=== PATIENT | male | born 2000 | race Caucasian/White ===

== ENCOUNTER → 2023-12-14 10:54 | Outpatient (REF) | payer OTHER, SELFPAY | LOC: RAD 10:54 | PROVIDERS: ATTENDING PHYSICIAN Nurse Practitioner Family | DX: R10.13 Epigastric pain (principal); R10.31 Right lower quadrant pain | CPT/HCPCS: 74177; Q9967 ==

== ENCOUNTER 2024-03-01 06:15 | Day surgery (SDC) | payer OTHER, SELFPAY | END 2024-03-01 11:26 | disposition home or self-care (01) | LOC: GI 06:15 | PROVIDERS: ATTENDING PHYSICIAN Internal Medicine | DX: R93.3 Abnormal findings on diagnostic imaging of other parts of digestive tract (principal) | CPT/HCPCS: 45380; 88305 ==

== ENCOUNTER 2024-05-09 18:59 | Outpatient (RCR) | payer OTHER, SELFPAY | END 2024-05-09 23:59 | disposition home or self-care (01) | LOC: RPT 18:59 | PROVIDERS: ATTENDING PHYSICIAN Internal Medicine; FAMILY PHYSICIAN Family Medicine | DX: M62.89 Other specified disorders of muscle (principal); R10.2 Pelvic and perineal pain; R15.2 Fecal urgency; Z73.6 Limitation of activities due to disability | CPT/HCPCS: 97112; 97140; 97163; 97530 ==

== ENCOUNTER 2024-06-06 10:49 | Outpatient (RCR) | payer OTHER, SELFPAY | END 2024-06-06 23:59 | disposition home or self-care (01) | LOC: RPT 10:49 | PROVIDERS: ATTENDING PHYSICIAN Internal Medicine; FAMILY PHYSICIAN Family Medicine | DX: M62.89 Other specified disorders of muscle (principal); R10.2 Pelvic and perineal pain; R15.2 Fecal urgency; Z73.6 Limitation of activities due to disability | CPT/HCPCS: 97112; 97140; 97530 ==

== ENCOUNTER 2024-07-09 11:57 | Outpatient (RCR) | payer OTHER, SELFPAY | END 2024-07-09 23:59 | disposition home or self-care (01) | LOC: RPT 11:57 | PROVIDERS: ATTENDING PHYSICIAN Internal Medicine; FAMILY PHYSICIAN Family Medicine | DX: R10.2 Pelvic and perineal pain (principal); R15.2 Fecal urgency; M62.89 Other specified disorders of muscle; Z73.6 Limitation of activities due to disability | CPT/HCPCS: 97014; 97110; 97112; 97140; 97530 ==

== ENCOUNTER 2024-08-09 09:53 | Outpatient (RCR) | payer OTHER, SELFPAY | END 2024-08-09 23:59 | disposition home or self-care (01) | LOC: RPT 09:53 | PROVIDERS: ATTENDING PHYSICIAN Internal Medicine; FAMILY PHYSICIAN Family Medicine | DX: M62.89 Other specified disorders of muscle (principal); R10.2 Pelvic and perineal pain; R15.2 Fecal urgency; Z73.6 Limitation of activities due to disability | CPT/HCPCS: 97014; 97110; 97112; 97140; 97530 ==

== ENCOUNTER 2024-08-28 08:58 | Outpatient (RCR) | payer OTHER, SELFPAY | END 2024-08-28 23:59 | disposition home or self-care (01) | LOC: RPT 08:58 | PROVIDERS: ATTENDING PHYSICIAN Internal Medicine; FAMILY PHYSICIAN Family Medicine | DX: M62.89 Other specified disorders of muscle (principal); R10.2 Pelvic and perineal pain; R15.2 Fecal urgency; Z73.6 Limitation of activities due to disability | CPT/HCPCS: 97140; 97530 ==

== ENCOUNTER 2024-10-09 10:04 | Outpatient (RCR) | payer OTHER, SELFPAY | END 2024-10-09 23:59 | disposition home or self-care (01) | LOC: RPT 10:04 | PROVIDERS: ATTENDING PHYSICIAN Internal Medicine; FAMILY PHYSICIAN Family Medicine | DX: M62.89 Other specified disorders of muscle (principal); R10.2 Pelvic and perineal pain; R15.2 Fecal urgency; Z73.6 Limitation of activities due to disability | CPT/HCPCS: 97110; 97112; 97140; 97530 ==

== ENCOUNTER 2024-10-23 19:58 | Emergency (ER) | payer OTHER, SELFPAY ==
[2024-10-23 20:02] VITALS: BP 126/82
[2024-10-23 20:23] LABS: Urine Character Clear (Clear)
[2024-10-23 20:24] LABS: Hematocrit 45.3 % (39.0-52.0); Hemoglobin 15.5 g/dL (13.0-18.0); Mean Corp Hgb Conc. 34.2 g/dL (33.0-37.0); Mean Corpuscular Volume 84.5 fL (80.0-94.0); Nucleated Red Blood Cells % 0 % (-); Platelet Count 238 10^3/uL (130-400); Red Cell Dist. Width 12.3 % (11.5-14.5)
[2024-10-23] MEDS: TYLENOL 650 MG PO (20:31)
[2024-10-23 20:42] LABS: ALT (SGPT) 32 U/L (0-50); AST (SGOT) 30 U/L (17-59); Albumin 4.8 g/dl (3.5-5.0); Alkaline Phosphatase 67 U/L (38-126); Blood Urea Nitrogen 22 mg/dl (9-20); Calcium 9.3 mg/dl (8.4-10.2); Carbon Dioxide 25 mmol/L (22-30); Chloride 103 mmol/L (98-107); Glucose 115 mg/dl (70-99); Lipase 86 U/L (23-300); Potassium 4.3 mmol/L (3.5-5.1); Sodium 137 mmol/L (135-145); Total Protein 7.6 g/dl (6.3-8.2); eGFR > 60.00
--- NOTE | 2024-10-23 23:06 | ED.GENMED ---
History of Present Illness
General
Chief Complaint: Abdominal Pain
Source: patient
Exam Limitations: none
Time Seen by Provider: 10/23/24 23:02
Nursing documentation reviewed up to this point in time: agreed with
History of Present Illness
History of Present Illness:
Note:
CHIEF COMPLAINT(S)
Abdominal discomfort and constipation.
HISTORY OF PRESENT ILLNESS
The patient is a 24-year-old male presenting with abdominal discomfort attributed to constipation, primarily localized to the right side. The patient reports experiencing this issue for a day and a half. During this period, he has not taken any
medications for pain relief. The problem has occurred previously, leading the patient to increase his intake of fluids and dietary fibers, such as fruits and vegetables, though he is surprised that the issue has recurred. Blood tests revealed a
slightly elevated white blood cell count of 12,000/mm�, which was deemed not significant. Urinalysis results were normal. Despite efforts to resolve the constipation, including physical activity, the condition persists.
PAST MEDICAL AND SURIGICAL HISTORY
No hospitalizations or past surgical history mentioned in the conversation.
SOCIAL HISTORY
The patient is physically active and has implemented changes to his fluid and fiber intake in response to previous episodes of constipation.
REVIEW OF SYSTEMS
- Gastrointestinal: Abdominal discomfort, constipation.
- General: Reports past episode of similar symptoms.
PHYSICAL EXAM
General: No acute distress.
Respiratory: Lungs clear, no respiratory distress noted.
Cardiovascular: S1 and S2 are normal; no S3 or murmurs detected.
Abdomen: Soft, non-tender, non-distended, no costovertebral angle tenderness.
Extremities: No edema, normal pulses in all extremities.
Neurological: Alert and oriented to person, place, and time; able to ambulate without difficulty.
PROBLEM LIST
Acute: Constipation, Abdominal discomfort.
PLAN
- Encourage the use of an rbxt-nis-eqyuxbf stool softener (MiraLAX) daily for one week to help alleviate constipation.
- Discuss dietary modifications, emphasizing adequate fluid intake and increased fiber consumption through fruits and vegetables.
- Reassurance provided regarding the absence of more serious underlying conditions based on laboratory and clinical findings.
DIFFERENTIAL DIAGNOSIS
The Differential Diagnosis includes, in no particular order and is not limited to:
1. Functional Constipation
2. Irritable Bowel Syndrome (IBS)
3. Dietary Fiber Insufficiency
4. Dehydration
5. Medication-Induced Constipation
6. Slow Transit Constipation
7. Hypothyroidism
8. Metabolic Imbalances
9. Intestinal Obstruction
10. Inflammatory Bowel Disease (IBD)
CARE-UPDATE
10/23/24 - 23:28
The patient is experiencing constipation. Discharge plans are being prepared. BUN levels are mildly elevated, and the patient is advised to increase fluid intake.
Disposition:
SUMMARY OF ENCOUNTER
The patient, a 24-year-old male, presented to the emergency department with abdominal discomfort primarily localized to the right side and attributed to constipation. The patient reported experiencing these symptoms for approximately a day and a
half. He has been increasing his fluid intake and dietary fiber consumption but has not taken any medications for pain relief. Laboratory tests revealed a slightly elevated white blood cell count but were deemed not significant. Urinalysis returned
normal results. Despite increased activity and dietary changes, the symptoms persisted, leading to this visit.
PLAN
- Recommend the use of an zyki-vqw-wsphfle stool softener, such as polyethylene glycol (Miralax), daily for one week to alleviate constipation.
- Emphasize dietary modifications with adequate fluid intake and increased consumption of fruits and vegetables.
- Reassurance provided regarding the absence of serious underlying conditions based on clinical and laboratory findings.
INDEPENDENT REVIEW OF LABS AND INTERPRETATION OF TESTS
My independent review of the complete blood count (CBC) indicates a slightly elevated white blood cell count of 12,000/mm�. My independent review of urinalysis results shows normal findings.
PATIENT EDUCATION AND COUNSELING
The patient was educated on the importance of maintaining adequate hydration and dietary fiber intake to prevent future episodes of constipation. Discussed the use of polyethylene glycol as a stool softener and encouraged him to seek further medical
evaluation if symptoms persist or worsen.
MEDICATION RECONCILIATION
Prescription medication was not administered during the visit. An sbas-bez-svkvqzi recommendation was made for polyethylene glycol (Miralax) as a stool softener.
MEDICAL DECISION MAKING
-Chronic conditions affecting care: No chronic conditions explicitly affecting this acute presentation were discussed.
-Complexity of Data Reviewed:
1. Differential Diagnosis:
- Functional Constipation
- Irritable Bowel Syndrome (IBS)
- Dietary Fiber Insufficiency
- Dehydration
- Medication-Induced Constipation
- Slow Transit Constipation
- Hypothyroidism
- Metabolic Imbalances
- Intestinal Obstruction
- Inflammatory Bowel Disease (IBD)
- Data:
- Category 1:
- Independent review of lab tests: CBC and urinalysis.
- Category 3:
- No external management discussion was noted.
- Risk:
Consideration of Admission/Observation: Escalation of care including admission/observation was considered given the complexity and risk of the patients presenting complaint and examination findings. Ultimately, outpatient management with close
follow-up was deemed appropriate as the work-up is reassuring, the patients symptoms are under control, and reliable follow-up is assured.
DIAGNOSIS
- Constipation, unspecified (ICD-10-CM: K59.00)
- Abdominal discomfort (ICD-10-CM: R10.9)
Phy Exam
Physical Exam
Physical Exam:
.
Course
Orders/Labs/Results
Orders:
Orders
10/23/24 20:11
Complete Blood Count/With Diff Urgent
Comprehensive Metabolic Panel Urgent
Lipase Urgent
Urinalysis Urgent
Date Specimen was Collected: 10/23/24
Time Specimen was Collected: 20:06
10/23/24 20:28
Acetaminophen [Tylenol] 650 mg .ROUTE .STK-MED ONE
10/23/24 20:31
Acetaminophen [Tylenol] 650 mg PO NOW STA
10/23/24 21:08
CT Abd/pelvis W Iv Cont Urgent
Comment:
Reason For Exam: RLQ pain
Abnormal Lab Results
10/23/24
20:11
WBC 12.6 H 10^3/uL
(4.8-10.8)
Absolute Neuts (auto) 8.0 H 10^3/uL
(1.4-6.5)
Absolute Monos (auto) 1.3 H 10^3/uL
(0.1-0.6)
Monocytes % 10.2 H %
(1.7-9.3)
BUN 22 H mg/dl
(9-20)
Glucose 115 H mg/dl
(70-99)
10/23/24 20:11
10/23/24 20:11
Vital Signs
Initial and Last Documented VS:
Initial Vital Signs
Temp Pulse Resp BP Pulse Ox
98.5 F 106 22 126/82 98
10/23/24 20:02 10/23/24 20:02 10/23/24 20:02 10/23/24 20:02 10/23/24 20:02
Last Documented Vital Signs
Temp Pulse Resp BP Pulse Ox
98.5 F 106 22 126/82 98
10/23/24 20:02 10/23/24 20:02 10/23/24 20:02 10/23/24 20:02 10/23/24 20:02
*Pulse Oximetry
SaO2: 98
Oxygen Mode of Delivery: Room air
Patient hypoxic: no
*Critical Care Note
Total Time (30-74mins, 75-104mins- exclusive of procedures): Not Applicable
ED Attending Note
-
Portions of this chart may have been created with voice recognition software.� Occasional wrong word or��sound alike� substitutions may have occurred due to the inherent limitations of voice recognition software.
Discharge Plan
Departure
Patient Disposition: Home (Routine Discharge)
Date of Disposition: 10/23/24
Time of Disposition: 23:21
Patient with high blood pressure during this ER visit?: Yes
Condition: Good
Discharge Problem:
Constipation
Instructions: Constipation, Adult (DC), Abdominal Pain, BLOOD PRESSURE
Referrals:
Abraham Jo MD [Active, Gastroenterology] - Call in 1-3 days for appt
Interventions
Interventions:
*Risk Screen - Suicide Last Done: 10/23/24 20:02
*Neglect/Abuse Screening Last Done: 10/23/24 20:02
Discharge Date and Time
Print Language: AUSTRIAN
[2024-10-23 23:17] VITALS: BP 127/76
[2024-10-23 23:18] VITALS: BMI 25.4
== END 2024-10-23 23:34 | disposition home or self-care (01) ==
LOC: EMR 19:58
PROVIDERS: Emergency Medicine; EMERGENCY PHYSICIAN Emergency Medicine; FAMILY PHYSICIAN Family Medicine
DX: K59.00 Constipation, unspecified (principal); R03.0 Elevated blood-pressure reading, without diagnosis of hypertension
CPT/HCPCS: 99284; 74177; 80053; 81003; 83690; 85025; Q9967

== ENCOUNTER 2024-10-25 13:25 | Outpatient (RCR) | payer OTHER, SELFPAY | END 2024-11-06 23:59 | disposition home or self-care (01) | LOC: RPT 13:25 | PROVIDERS: ATTENDING PHYSICIAN Internal Medicine; FAMILY PHYSICIAN Family Medicine | DX: M62.89 Other specified disorders of muscle (principal); R10.2 Pelvic and perineal pain; R15.2 Fecal urgency; Z73.6 Limitation of activities due to disability | CPT/HCPCS: 97110; 97140; 97530 ==

== ENCOUNTER → 2024-10-31 09:02 | Outpatient (REF) | payer OTHER, SELFPAY | LOC: RAD 09:02 | PROVIDERS: ATTENDING PHYSICIAN Internal Medicine; FAMILY PHYSICIAN Family Medicine | DX: R10.31 Right lower quadrant pain (principal) | CPT/HCPCS: 74019 ==

== ENCOUNTER 2024-11-20 15:18 | Outpatient (RCR) | payer OTHER, SELFPAY | END 2024-11-20 23:59 | disposition home or self-care (01) | LOC: RPT 15:18 | PROVIDERS: ATTENDING PHYSICIAN Internal Medicine; FAMILY PHYSICIAN Family Medicine | DX: M62.89 Other specified disorders of muscle (principal); R10.2 Pelvic and perineal pain; R15.2 Fecal urgency; Z73.6 Limitation of activities due to disability | CPT/HCPCS: 97110; 97112; 97140; 97530 ==

== ENCOUNTER 2025-01-01 07:08 | Outpatient (RCR) | payer OTHER, SELFPAY | END 2025-01-01 23:59 | disposition home or self-care (01) | LOC: RPT 07:08 | PROVIDERS: ATTENDING PHYSICIAN Internal Medicine; FAMILY PHYSICIAN Family Medicine | DX: M62.89 Other specified disorders of muscle (principal); R10.2 Pelvic and perineal pain; R10.20 Pelvic and perineal pain unspecified side; R15.2 Fecal urgency; Z73.6 Limitation of activities due to disability | CPT/HCPCS: 97110; 97112; 97140; 97530 ==

== ENCOUNTER 2025-02-28 13:53 | Outpatient (RCR) | payer OTHER, SELFPAY | END 2025-02-28 23:59 | disposition home or self-care (01) | LOC: RPT 13:53 | PROVIDERS: ATTENDING PHYSICIAN Internal Medicine; FAMILY PHYSICIAN Family Medicine | DX: M62.89 Other specified disorders of muscle (principal); R15.2 Fecal urgency; R10.20 Pelvic and perineal pain unspecified side; Z73.6 Limitation of activities due to disability; R10.2 Pelvic and perineal pain | CPT/HCPCS: 97110; 97112; 97140; 97530 ==